=== PATIENT | female | born 1955 ===

== ENCOUNTER → 2023-12-12 | Outpatient (CLI) | payer SELFPAY ==
[2023-12-16 01:51] LABS: HSV 1 SUBTYPE BY PCR Not Detected; HSV 2 SUBTYPE BY PCR Not Detected; HSV SUBTYPE SOURCE Swab
== END | disposition home or self-care (01) ==
LOC: LAB SHORT 18:44
PROVIDERS: Student in an Organized Health Care Education/Training Program
DX: L08.9 Local infection of the skin and subcutaneous tissue, unspecified (principal); R21 Rash and other nonspecific skin eruption
CPT/HCPCS: 87529